=== PATIENT | female | born 1965 | race Two or more races ===

== ENCOUNTER 2020-07-04 20:14 | Emergency (ER) | payer SELFPAY ==
[~2020-07-04] VITALS: Ht 152.4 cm; Wt 77.3 kg
[2020-07-04] MEDS ORDERED: HYDR-1475 PO (20:48)
[2020-07-04] MEDS ORDERED: LISI-892 PO (20:48)
[2020-07-04] MEDS ORDERED: CYCLOBENZAPRINE HCL 10 MG TABLET PO ONE (23:30)
[2020-07-04] MEDS ORDERED: KETOROLAC TROMETHAMINE 30 MG/ML VIAL IM ONE (23:30)
[2020-07-04 23:52] VITALS: BP 157/97
== END 2020-07-04 23:56 | disposition home or self-care (01) ==
LOC: EMS 20:20
DX: S13.4XXA Sprain of ligaments of cervical spine, initial encounter (principal); M54.5 Low back pain; I10 Essential (primary) hypertension; Z88.0 Allergy status to penicillin; Z79.899 Other long term (current) drug therapy; V43.62XA Car passenger injured in collision with other type car in traffic accident, initial encounter; Y93.89 Activity, other specified; Y92.89 Other specified places as the place of occurrence of the external cause; Y99.8 Other external cause status
CPT/HCPCS: 96372; 99283; J1885

== ENCOUNTER 2021-11-01 21:16 | Emergency (ER) | payer OTHER ==
[~2021-11-01] VITALS: Ht 152.4 cm; Wt 72.7 kg
[~2021-11-01 21:16] MED LIST: HYDR-4870 PO; LISI-892 PO
[2021-11-01] MEDS ORDERED: ACETAMINOPHEN 500 MG TABLET PO ONE (22:30)
[2021-11-02 00:50] VITALS: BP 135/89
== END 2021-11-02 01:18 | disposition home or self-care (01) ==
LOC: EMS 21:36
DX: I10 Essential (primary) hypertension (principal); Z88.0 Allergy status to penicillin
CPT/HCPCS: 99282; Z7502; Z7610